=== PATIENT | male | born 2000 | race Asian ===

== ENCOUNTER 2019-07-29 14:04 | Emergency (ER) | payer BC ==
[~2019-07-29] VITALS: Ht 182.9 cm; Wt 67.7 kg
[2019-07-29 14:49] VITALS: BP 151/92
--- NOTE | 2019-07-29 15:00 | NUR ---
Pt to room from lobby.
[2019-07-29 16:17] LABS: MICROSCOPIC NOT IND
[2019-07-29 16:24] LABS: CULTURE INDICATED? NO
== END 2019-07-29 17:12 | disposition home or self-care (01) ==
LOC: ED 17:00
DX: I86.1 Scrotal varices (principal)
CPT/HCPCS: 76870; 81003; 99284